=== PATIENT | male | born 1975 | race Caucasian/White ===

== ENCOUNTER 2020-06-02 10:33 | Emergency (ER) | payer SELFPAY ==
[~2020-06-02] VITALS: Ht 170.2 cm; Wt 88.5 kg
[2020-06-02 10:44] VITALS: Ht 170.2 cm; Wt 88.5 kg
[2020-06-02 12:29] VITALS: BP 145/97
== END 2020-06-02 12:29 | disposition home or self-care (01) ==
LOC: ED 10:33
DX: R07.89 Other chest pain (principal); R06.00 Dyspnea, unspecified; M54.6 Pain in thoracic spine; Z20.828 Contact with and (suspected) exposure to other viral communicable diseases
CPT/HCPCS: Q0092; U0003-CS